=== PATIENT | female | born 2000 | race Caucasian/White ===

== ENCOUNTER 2024-03-28 17:38 | Emergency (ER) | payer OTHER ==
[~2024-03-28] VITALS: Ht 157.4 cm; Wt 54.4 kg
[2024-03-28] MEDS ORDERED: PREDNISONE20 M1 PO (17:56)
[2024-03-28] MEDS ORDERED: methylPREDNISolone sod succ 125 MG VIAL IM ONE (18:00)
[2024-03-28] MEDS ORDERED: diphenhydrAMINE hydrochloride 25 MG CAP PO ONE (18:00)
== END 2024-03-28 18:30 | disposition home or self-care (01) ==
LOC: ED 17:38
DX: R21 Rash and other nonspecific skin eruption (principal); T78.40XA Allergy, unspecified, initial encounter; X58.XXXA Exposure to other specified factors, initial encounter

== ENCOUNTER 2024-05-23 00:54 | Emergency (ER) | payer SELFPAY ==
[~2024-05-23] VITALS: Ht 162.5 cm; Wt 63.5 kg
[~2024-05-23 00:54] MED LIST: PREDNISONE20 M1 PO
[2024-05-23] MEDS ORDERED: Midazolam Hydrochloride 5 MG/ML VIAL INH ONE (01:10)
[2024-05-23 01:12] LABS: BASO # 0.1 10*3/uL (0.0-0.1); BASO % 0.5 % (0.0-1.0); EOS # 0.1 10*3/uL (0.0-0.4); HEMATOCRIT 42.2 % (37.0-47.0); LYMPH # 3.6 10*3/uL (1.3-4.4); LYMPH % 36.3 % (27.0-41.0); MEAN CELL VOLUME 90.8 fl (81.0-99.0); MEAN CORPUSCULAR HGB 30.1 pg (27.0-31.0); MEAN CORPUSCULAR HGB CONC 33.2 g/dl (33.0-37.0); MEAN PLATELET VOLUME 8.8 fl (9.6-12.3); MONO # 0.6 10*3/uL (0.1-1.0); MONO % 5.7 % (3.0-9.0); NEUT # 5.6 10*3/uL (2.3-7.9); NEUT % 56.2 % (47.0-73.0); PLATELET COUNT AUTOMATED 371 10*3/uL (130-400); RED BLOOD COUNT 4.65 10*6/uL (4.10-5.10); RED CELL DISTRI WIDTH 12.3 % (0-14.5)
[2024-05-23 01:25] LABS: ACT PARTIAL THROMBO TIME 25.6 SECONDS (20.0-32.1)
[2024-05-23 01:35] LABS: ALKALINE PHOSPHATASE 59 U/L (46-116); BUN 12 mg/dl (9-23); CHLORIDE 107 mmol/L (98-107); CPK 65 U/L (34-171); ETHYL ALCOHOL 199.5 mg/dl (<3); LIPASE 30 U/L (12-53); POTASSIUM 3.3 mmol/L (3.4-5.1); SGPT/ALT 26 U/L (5-49); TOTAL PROTEIN 8.1 gm/dL (6.0-8.0)
[2024-05-23 01:38] LABS: BILIRUBIN Negative (Negative); BLOOD Negative (Negative); CLARITY Clear (Clear); COLOR Yellow (Yellow); GLUCOSE Negative (Negative); KETONE Negative (Negative); LEUKO ESTERASE Trace (Negative); NITRITE Negative (Negative); PH 5.5 (4.5-8.0); SPECIFIC GRAVITY <= 1.005 (1.001-1.030); UROBILINOGEN 0.2 E.U./dl (0.0-1.0)
[2024-05-23 01:44] LABS: URINE AMPHETAMINES Negative (1000ng/ml); URINE BARBITURATES Negative (200ng/ml); URINE BENZODIAZEPINES Negative (200ng/ml); URINE CANNABINOIDS (THC) Negative (50ng/ml); URINE COCAINE Negative (300ng/ml); URINE METHADONE Negative (300ng/ml); URINE OPIATES Negative (300ng/ml); URINE PHENCYCLIDINE Negative (25ng/ml)
[2024-05-23 01:47] LABS: WBC 0-2 wbc/hpf (0-5)
[2024-05-23] MEDS ORDERED: SODIUM CHLORIDE 0.9% 1,000 ML IV ONE ×2 (02:30→14:35)
[2024-05-23] MEDS ORDERED: Thiamine 200 MG/2 ML VIAL IV ONE (02:30)
[2024-05-23] MEDS ORDERED: Nicotine 21 MG PATCH T ONE (15:30)
[2024-05-24] MEDS ORDERED: Nicotine 21 MG PATCH T ONE (16:10)
== END 2024-05-24 17:11 | disposition home or self-care (01) ==
LOC: ED 00:54
PROVIDERS: Internal Medicine
DX: F43.21 Adjustment disorder with depressed mood (principal); F10.129 Alcohol abuse with intoxication, unspecified; Y90.2 Blood alcohol level of 40-59 mg/100 ml